=== PATIENT | female | born 1985 ===

== ENCOUNTER 2022-09-02 06:00 | Day surgery (SDC) | payer OTHER ==
[~2022-09-02] VITALS: Ht 154.9 cm; Wt 68.0 kg
[2022-09-02] MEDS ORDERED: IBU600 MG PO (12:06)
[2022-09-02] MEDS ORDERED: TRAM1TAB98 PO (12:06)
== END 2022-09-02 15:55 | disposition home or self-care (01) ==
LOC: CIR.AMB 06:00
PROVIDERS: ATTEND Obstetrics & Gynecology
DX: N83.291 Other ovarian cyst, right side (principal); R10.2 Pelvic and perineal pain; Z20.822 Contact with and (suspected) exposure to COVID-19